=== PATIENT | female | born 1960 | race Caucasian/White ===

== ENCOUNTER → 2021-04-25 12:16 | Outpatient (CLI) | payer OTHER, SELFPAY ==
--- NOTE | ~2021-04-25 | MM_ITS ---
EXAMINATION: MM screening lex BI w parviz HISTORY: Screening TECHNIQUE: Craniocaudal and mediolateral oblique 3-D tomosynthesis images were obtained and synthetic 2-D images were generated. CAD analysis was submitted and interpreted. COMPARISON: 04/02/2015 BREAST PARENCHYMAL COMPOSITION: Breast composed of scattered areas of fibroglandular density. FINDINGS: There is a new spiculated mass with regional pleomorphic calcifications centered in the upp er outer quadrant of the right breast. There is an enlarging lymph node in the outer aspect of the ri ght breast on CC view. The left breast is stable without evidence for malignancy. IMPRESSION: 1. New spiculated right breast mass with regional calcifications. 2. Additional mammographic views and possible breast ultrasound are recommended. BI-RADS Category 0: Incomplete: Needs additional imaging evaluation. Reviewed, dictated and finalized at location A. IMPRESSION: 1. New spiculated right breast mass with regional calcifications. 2. Additional mammographic views and possible breast ultrasound are recommended . BI-RADS Category 0: Incomplete: Needs additional imaging evaluation.
== END ==
PROVIDERS: PCP Family Medicine; Visit Provider Physician Assistant
DX: Z12.31 Encounter for screening mammogram for malignant neoplasm of breast (principal); R92.8 Other abnormal and inconclusive findings on diagnostic imaging of breast
CPT/HCPCS: 77063; 77067

== ENCOUNTER → 2021-05-22 08:38 | Outpatient (CLI) | payer OTHER, SELFPAY ==
--- NOTE | ~2021-05-22 | MMUS_ITS ---
EXAMINATION: MM diagnostic lex RT w parviz, US breast RT complete HISTORY: Follow-up right breast mass and calcifications TECHNIQUE: Additional 3-D tomosynthesis images of right were performed and synthetic 2-D images were generated. CAD analysis was submitted and interpreted. High resolution right complete breast ultrasou nd was performed. COMPARISON: 04/25/2021 and 04/15/2015 BREAST PARENCHYMAL COMPOSITION: Breast composed of scattered areas of fibroglandular density. FINDINGS: MAMMOGRAPHIC FINDINGS: There is an irregular shaped spiculated mass centered in the upper outer quadrant of the right breast measuring approximately 2.8 cm greatest dimension. There are associated surrounding suspicious calci fications in the upper outer quadrant extending across the midline into the medial aspect of the righ t breast. ULTRASOUND: Complete right breast ultrasound: At 10:00, 7 cm from the nipple, there is a lobulated hypoechoic 9 m m mass with internal vascularity. No significant posterior features. At 12:00, 3 cm from the nipple, there is an irregular shaped hypoechoic mass with posterior shadowing measuring 1.7 x 1.5 x 1.4 cm, c orresponding to the dominant mass seen on mammography. IMPRESSION: 1. Multiple suspicious right breast masses with additional suspicious calcifications involving the up per outer and upper inner quadrant of the right breast. 2. Ultrasound-guided right breast biopsies recommended. BI-RADS category 5, highly suggestive of malignancy. Reviewed, dictated and finalized at location A. IMPRESSION: 1. Multiple suspicious right breast masses with additional suspicious calcifica tions involving the upper outer and upper inner quadrant of the right breast. 2. Ultrasound-guided right breast biopsies recommended. BI-RADS category 5, highly suggestive of malignancy.
== END ==
PROVIDERS: PCP Family Medicine; Visit Provider Family Medicine
DX: R92.8 Other abnormal and inconclusive findings on diagnostic imaging of breast (principal); N63.15 Unspecified lump in the right breast, overlapping quadrants
CPT/HCPCS: 76641; 77061; 77065; G0279

== ENCOUNTER 2021-06-24 10:34 | Outpatient (CLI) | payer OTHER, SELFPAY ==
--- NOTE | 2021-06-24 | ECHO_ITS ---
Patient Info Name: Kate Dubois Age: 60 years : 1960 Gender: Female Ht: 64 in Wt: 134 lbs BSA: 1.66 m2 HR: 56 bpm BP: 144 / 83 mmHg Heart Rhythm: Bradycardia Technical Quality: Good Exam Date: 06/24/2021 11:01 AM Exam Location: [facility] Patient Status: Outpatient Admit Date: 06/24/2021 Staff Ordering Physician: Sean Pizarro MD Information Security Manager: ITALIA Attending Provider: Sean Pizarro MD Referring Physician: Juarez SENIOR; Exam Type: CA echo doppler color flow Study Info Indications C50.411 - Malignant neoplasm of upper-outer quadrant of right female breast Complete two-dimensional, color flow and Doppler transthoracic echocardiogram is performed. Summary 1. Complete two-dimensional, color flow and Doppler transthoracic echocardiogram is performed. 2. Normal LV size and wall thickness. Normal LV systolic and diastolic function. Ejection fraction is measured at 65%. Normal global longitudinal strain measured at -23%. No significant valvular abnormality on echo and Doppler. Sinus rhythm and sinus bradycardia during the study. Left Ventricle Left ventricular chamber dimension is normal. Left ventricular systolic function is normal, estimated at 60-65%. There is no increased left ventricular wall thickness. The left ventricular diastolic function is normal. Right Ventricle Right ventricular chamber dimension is normal. Right ventricular systolic function is normal. Aortic Valve The aortic valve is normal. There is no aortic valve stenosis. Pulmonic Valve The pulmonic valve is normal. Mitral Valve The mitral valve has normal leaflets. There is no mitral valve regurgitation. Tricuspid Valve The tricuspid valve leaflets are normal. There is trace tricuspid valve regurgitation. Left Ventricular Outflow Tract Name Value Normal LVOT 2D LVOT Diameter 2.1 cm LVOT Doppler LVOT Peak Gradient 4 mmHg LVOT Mean Gradient 2 mmHg LVOT VTI 27 cm LVOT VTI/AV VTI Ratio 1.2 LVOT Stroke Volume 90 ml LVOT CO 13.1 l/min LVOT CI 7.9 l/min/m2 Mitral Valve Name Value Normal MV Doppler MV Decel [place] 224 cm/s2 MV PHT 99 ms MV Area (PHT) 2.2 cm2 4.0-5.0 MV Diastolic Function MV E Peak Velocity 77 cm/s MV A Peak Velocity 74 cm/s MV E/A 1.0 MV Decel Time 342 ms MV Annular TDI
== END 2021-06-24 10:35 | disposition home or self-care (01) ==
PROVIDERS: PCP Family Medicine; Visit Provider Internal Medicine Hematology & Oncology
DX: C50.411 Malignant neoplasm of upper-outer quadrant of right female breast (principal); Z17.0 Estrogen receptor positive status [ER+]
CPT/HCPCS: 93306

== ENCOUNTER 2021-10-09 09:37 | Outpatient (CLI) | payer OTHER, SELFPAY ==
--- NOTE | 2021-10-09 | ECHO_ITS ---
Patient Info Name: Kate Dubois Age: 61 years : 1960 Gender: Female Ht: 64 in Wt: 130 lbs BSA: 1.64 m2 HR: 74 bpm BP: 126 / 78 mmHg Heart Rhythm: Sinus Rhythm Technical Quality: Good Exam Date: 10/09/2021 10:00 AM Exam Location: [facility] Pul[facility] Patient Status: Outpatient Admit Date: 10/09/2021 Staff Ordering Physician: Sean Pizarro MD Hvac Designer: Khloe Quan RDCS Attending Provider: Sean Pizarro MD Referring Physician: Juarez SENIOR; Exam Type: CA echo doppler color flow Study Info Indications C50.411 - Malignant neoplasm of upper-outer quadrant of right female breast Complete two-dimensional, color flow and Doppler transthoracic echocardiogram is performed. Strain analysis performed. Summary 1. Complete two-dimensional, color flow and Doppler transthoracic echocardiogram is performed. 2. Strain analysis performed. 3. Left ventricular chamber dimension is normal. 4. Left ventricular systolic function is normal, estimated at 55-60%. 5. There is no increased left ventricular wall thickness. 6. The left ventricular diastolic function is normal. 7. Global longitudinal strain is borderline at -16 %. 8. There is mild mitral valve regurgitation. Left Ventricle Left ventricular chamber dimension is normal. Left ventricular systolic function is normal, estimated at 55-60%. There is no increased left ventricular wall thickness. The left ventricular diastolic function is normal. Global longitudinal strain is borderline at -16 %. Right Ventricle Right ventricular chamber dimension is mildly enlarged. Right ventricular systolic function is normal. Left Atria Left atrial chamber dimension is normal. Right Atria Right atrial chamber dimension is mildly enlarged. Atrial Septum Intact interatrial septum visualized by color flow imaging. Aortic Valve The aortic valve is trileaflet. There is mild aortic valve sclerosis. There is no aortic valve stenosis. There is trace aortic valve regurgitation. Pulmonic Valve The pulmonic valve is normal. There is no pulmonic valve stenosis. There is trace pulmonic regurgitation. Mitral Valve The mitral valve has normal leaflets. There is no mitral valve stenosis. There is mild mitral valve regurgitation. Tricuspid Valve The tricuspid valve leaflets are normal. There is no significant tricuspid valve stenosis. There is trace tricuspid valve regurgitation. No pulmonary hypertension, estimated pulmonary arterial systolic pressure is 29 mmHg. Pericardium/Pleural The pericardium appears normal. There is no pericardial effusion. Inferior Vena Cava Normal inferior vena cava with >50% collapse upon inspiration consistent with normal right atrial pressure, 10 mmHg. Aorta The aortic root size at the sinus of Valsalva is normal. Left Ventricular Outflow Tract Name Value Normal LVOT 2D LVOT Diameter 2.0 cm LVOT Doppler LVOT Peak Gradient 3 mmHg LVOT Mean Gradient 2 mmHg LVOT VTI 15 cm LVOT VTI/AV VTI Ratio
== END 2021-10-09 09:38 | disposition home or self-care (01) ==
PROVIDERS: PCP Family Medicine; Visit Provider Internal Medicine Hematology & Oncology
DX: C50.411 Malignant neoplasm of upper-outer quadrant of right female breast (principal); Z17.0 Estrogen receptor positive status [ER+]
CPT/HCPCS: 93306

== ENCOUNTER 2022-02-04 09:38 | Outpatient (CLI) | payer OTHER, SELFPAY ==
--- NOTE | 2022-02-04 | ECHO_ITS ---
Patient Info Name: Kate Dubois Age: 61 years : 1960 Gender: Female Ht: 64 in Wt: 134 lbs BSA: 1.66 m2 HR: 64 bpm BP: 129 / 77 mmHg Heart Rhythm: Sinus Rhythm Technical Quality: Good Exam Date: 02/04/2022 9:58 AM Exam Location: [facility] Pulmonary Patient Status: Outpatient Admit Date: 02/04/2022 Staff Ordering Physician: Sean Pizarro MD Fusing Machine Feeder: Lorenza Slaughter RDCS Attending Provider: Sean Pizarro MD Referring Physician: Juarez SENIOR; Exam Type: CA echo doppler color flow Study Info Indications - Malignant neoplasm of upper outer, quadrant of right breast, estrogen receptor positive Summary 1. Left ventricular chamber dimension is normal. 2. Left ventricular systolic function is normal, estimated at 60-65%. 3. The left ventricular diastolic function is normal. 4. E/e' 5 is not elevated. 5. Global longitudinal strain is normal at -19.3%. 6. There is trace tricuspid valve regurgitation. 7. No pulmonary hypertension, estimated pulmonary arterial systolic pressure is 26 mmHg. Left Ventricle E/e' 5 is not elevated. Global longitudinal strain is normal at -19.3%. Left ventricular chamber dimension is normal. Left ventricular systolic function is normal, estimated at 60-65%. The left ventricular diastolic function is normal. Right Ventricle Right ventricular systolic function is normal and with normal TAPSE 2.1 cm. Right ventricular chamber dimension is normal. Left Atria Left atrial chamber dimension is normal. Right Atria Right atrial chamber dimension is normal. Aortic Valve The aortic valve is trileaflet. There is no aortic valve stenosis. There is no aortic valve regurgitation. Pulmonic Valve There is no pulmonic regurgitation. Mitral Valve There is no mitral valve stenosis. There is no mitral valve regurgitation. Tricuspid Valve There is trace tricuspid valve regurgitation. No pulmonary hypertension, estimated pulmonary arterial systolic pressure is 26 mmHg. Pericardium/Pleural There is no pericardial effusion. Inferior Vena Cava Normal inferior vena cava with >50% collapse upon inspiration consistent with normal right atrial pressure, 5 mmHg. Aorta The aortic root size at the sinus of Valsalva is normal. Left Ventricular Outflow Tract Name Value Normal LVOT 2D LVOT Diameter 2.0 cm LVOT Doppler LVOT Peak Gradient 4 mmHg LVOT Mean Gradient 2 mmHg LVOT VTI 20 cm LVOT VTI/AV VTI Ratio 0.8 LVOT Stroke Volume 60 ml LVOT CO 3.4 l/min LVOT CI 2.1 l/min/m2 Pulmonic Valve Name Value Normal RVOT Doppler RVOT Peak Gradient 2 mmHg PV Doppler
== END 2022-02-04 09:39 | disposition home or self-care (01) ==
LOC: ANHCARD 09:38
PROVIDERS: PCP Family Medicine; Visit Provider Internal Medicine Hematology & Oncology
DX: C50.411 Malignant neoplasm of upper-outer quadrant of right female breast (principal); Z17.0 Estrogen receptor positive status [ER+]
CPT/HCPCS: 93306

== ENCOUNTER 2022-05-19 07:27 | Outpatient (CLI) | payer OTHER, SELFPAY ==
--- NOTE | 2022-05-19 | ECHO_ITS ---
Patient Info Name: Kate Dubois Age: 61 years : 1960 Gender: Female Ht: 63 in Wt: 137 lbs BSA: 1.67 m2 HR: 58 bpm BP: 116 / 74 mmHg Heart Rhythm: Sinus Rhythm Technical Quality: Fair Exam Date: 05/19/2022 8:16 AM Exam Location: [facility] Pulmonary Patient Status: Outpatient Admit Date: 05/19/2022 Staff Ordering Physician: Sean Pizarro MD Foreign Trade Teacher: Lorenza Slaughter RDCS Attending Provider: Sean Pizarro MD Referring Physician: Juarez SENIOR; Exam Type: CA echo doppler color flow Study Info Indications - Malignant neoplasm of the upper-outer quardrant of right breast in female estrogen receptor positive (C50.411, Z17.0) Complete two-dimensional, color flow and Doppler transthoracic echocardiogram is performed. Summary 1. Complete two-dimensional, color flow and Doppler transthoracic echocardiogram is performed. 2. Left ventricular chamber dimension is normal. 3. Left ventricular systolic function is normal, estimated at 60-65%. 4. The left ventricular diastolic function is grade I diastolic dysfunction. 5. E/e' 9 is minimally elevated. 6. Global longitudinal strain is normal at -20.6%. 7. No pulmonary hypertension, estimated pulmonary arterial systolic pressure is 23 mmHg. Left Ventricle E/e' 9 is minimally elevated. Global longitudinal strain is normal at -20.6%. Left ventricular chamber dimension is normal. Left ventricular systolic function is normal, estimated at 60-65%. The left ventricular diastolic function is grade I diastolic dysfunction. Right Ventricle Right ventricular systolic function is normal and with normal TAPSE 2.7 cm. Right ventricular chamber dimension is normal. Left Atria Left atrial chamber dimension is normal. Right Atria Right atrial chamber dimension is normal. Aortic Valve The aortic valve is trileaflet. There is no aortic valve stenosis. There is no aortic valve regurgitation. Pulmonic Valve There is no pulmonic regurgitation. Mitral Valve There is no mitral valve stenosis. There is no mitral valve regurgitation. Tricuspid Valve There is no tricuspid valve regurgitation. No pulmonary hypertension, estimated pulmonary arterial systolic pressure is 23 mmHg. Pericardium/Pleural There is no pericardial effusion. Inferior Vena Cava Normal inferior vena cava with >50% collapse upon inspiration consistent with normal right atrial pressure, 5 mmHg. Aorta The aortic root size at the sinus of Valsalva is normal. Left Ventricular Outflow Tract Name Value Normal LVOT 2D LVOT Diameter 2.0 cm LVOT Doppler LVOT Peak Gradient 4 mmHg LVOT Mean Gradient 2 mmHg LVOT VTI 19 cm LVOT VTI/AV VTI Ratio 0.8 LVOT Stroke Volume 58 ml LVOT CO 3.4 l/min LVOT CI 2.0 l/min/m2 Pulmonic Valve Name Value Normal --------
== END 2022-05-19 07:28 | disposition home or self-care (01) ==
PROVIDERS: PCP Family Medicine; Visit Provider Internal Medicine Hematology & Oncology
DX: C50.411 Malignant neoplasm of upper-outer quadrant of right female breast (principal); Z17.0 Estrogen receptor positive status [ER+]
CPT/HCPCS: 93306

== ENCOUNTER 2022-07-06 13:04 | Emergency (ER) | payer OTHER, SELFPAY ==
--- NOTE | ~2022-07-06 | CT_ITS ---
EXAMINATION: CT abdomen pelvis w con INDICATION: Right lower quadrant pain TECHNIQUE: Computed tomographic images of the abdomen and pelvis were obtained after the administrati on of 100 cc of Omnipaque 350 intravenous contrast. The dose-length product (DLP) was 302.24 mGy-cm. Automated exposure control and iterative reconstruction technique were employed. COMPARISON: None available FINDINGS: Minimal dependent atelectasis is present in the lung bases. The heart size is normal. A rig ht breast implant is noted. 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 The liver , spleen, pancreas, gallbladder, and adrenal glands are normal. There is a 1.5 cm cyst of the right k idney. The left kidney is unremarkable. No pathologically enlarged abdominal or pelvic lymph nodes ar e identified. There is no free intraperitoneal gas or evidence of bowel obstruction. The appendix is normal. There is mild lumbar spondylosis. IMPRESSION: 1. No CT correlate for the patient's symptoms. 2. 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 Reviewed, dictated and finalized at location A.
[2022-07-06 13:27] VITALS: BP 140/83; PULSE 73; RESP 18; TEMP 36.2; O2SAT 100
[2022-07-06 13:46] LABS: Basophils Percent Auto 0.5 % (0.2-1.2); Eosinophils Absolute Auto 0.2 K/mm3 (0-0.3); Eosinophils Percent Auto 3.2 % (0-4.4); Hematocrit 39.7 % (37.0-47.0); Hemoglobin 12.6 g/dL (12.0-15.0); Immature Granulocyte Absolute 0.02 K/mm3 (0.00-0.031); Immature Granulocyte Percent A 0.3 % (0-0.5); Lymphocytes Absolute Auto 1.31 K/mm3 (0.9-3.2); Lymphocytes Percent Auto 21.7 % (18.3-44.2); Mean Corpuscular HGB Conc 31.7 g/dl (32-36); Mean Corpuscular Hemoglobin 27.2 pg (26-34); Mean Corpuscular Volume 85.7 fl (80-100); Mean Platelet Volume 8.7 fl (7.4-10.4); Monocytes Absolute Auto 0.4 K/mm3 (0.1-0.6); Monocytes Percent Auto 6.3 % (2.6-8.5); Neutrophils Absolute Auto 4.1 K/mm3 (1.3-6.7); Platelet Count Result 278 k/mm3 (150-375); Red Blood Count 4.63 M/mm3 (4.2-5.4); Red Cell Distribution Width 14.3 % (11.5-14.5)
[2022-07-06 13:55] LABS: Alanine Aminotransferase 34 U/L (6-35); Albumin Level 4.6 g/dL (3.5-5.1); Alkaline Phosphatase 51 U/L (38-126); Anion Gap 11 mmol/L (8-16); Aspartate Amino Transferase 38 U/L (14-36); Bilirubin,Total 0.3 mg/dL (0.2-1.3); Blood Urea Nitrogen 14 mg/dL (7-17); Calcium 10.1 mg/dL (8.4-10.2); Carbon Dioxide 28 mmol/L (22-30); Chloride 102 mmol/L (98-107); Estimated Glomerular Filt Rate > 60; Glucose 109 mg/dL (65-110); Lipase 142 U/L (23-300); Potassium 3.8 mmol/L (3.4-5.0); Sodium 141 mmol/L (137-145)
[2022-07-06 14:14] LABS: Add Urine Microscopic? YES; Appearance Urine Clear (Clear); Bacteria Urine Trace /hpf; Bilirubin Urine Negative (Negative); Blood Urine 1+ (Negative); Color Urine Straw (Yellow); Glucose Urine UA Negative (Negative); Ketones Urine Negative (Negative); Leukocyte Esterase Ur Negative LEU/UL (Negative); Mucus Urine Rare /lpf; Nitrate Urine Negative (Negative); Protein Urine Negative (Negative); RBC Urine 0-2 /hpf (0-2); Urobilinogen Urine Negative mg/dL (<2.0); WBC Urine 0-3 /hpf
[2022-07-06 14:16] LABS: Specific Grav Ur 1.002 (1.001-1.035)
--- NOTE | 2022-07-06 15:22 | ED.ABDPAIN ---
HPI - Abdominal Pain General Chief Complaint: Abdominal Pain Stated Complaint: abd pain Time Seen by Provider: 07/06/22 15:21 Source: patient Mode of arrival: ambulatory Limitations: no limitations History of Present Illness HPI narrative: Patient is a 61-year-old female with a history of breast cancer currently undergoing chemotherapy, presenting to the emergency department for evaluation of right lower quadrant abdominal pain. Patient reports pain in the right lower quadrant is aching in nature present over the last 3 weeks and worsening. Patient denies radiation of the pain to the back. She denies left lower quadrant pain. She denies fever, chills, nausea, vomiting, dysuria or hematuria. She denies constipation or diarrhea. Related Data Home Medications Medication Instructions Recorded Confirmed Adults Multivitamin 2 tab-cap PO DAILY 08/20/21 06/23/22 B12 1,000 mcg PO DAILY 08/20/21 06/23/22 Chewable Iron 65 mg PO DAILY 08/20/21 06/23/22 [place] 3 1,000 mg PO DAILY 08/20/21 06/23/22 calcium cit 250 mg-ergocalciferol 500 tablet PO DAILY 01/26/22 06/23/22 (vit D2) 2.5 mcg (100 unit) tablet anastrozole 1 mg tablet 1 mg PO DAILY 03/31/22 06/23/22 Allergies Allergy/AdvReac Type Severity Reaction Status Date / Time sulfamethizole Allergy Unknown Rash Verified 06/23/22 09:47 Review of Systems Review of Systems: CONSTITUTIONAL: Denies fever, chills, or sweats. EYES: Denies visual changes, redness, or discharge. ENT: Denies rhinorrhea, congestion, sore throat, or otalgia. CARDIOVASCULAR: Denies chest pain, palpitations, or edema. RESPIRATORY: Denies cough or dyspnea. GASTROINTESTINAL: Right lower quadrant abdominal pain, denies nausea, vomiting or diarrhea. GENITOURINARY: Denies dysuria or hematuria. SKIN: Denies rash or itching. MUSCULOSKELETAL: Denies back pain, joint pain, or myalgia. NEUROLOGIC: Denies headache, numbness, or weakness. [facility] Past Medical History Medical History Abnormal mammogram Breast CA Healthy adult Malignant neoplasm of upper-outer quadrant of right female breast Screening for colon cancer (~2019) cologuard negative Surgical History Surgical History Hx of tubal ligation S/P hernia surgery Family History Family History Father Family history of cardiovascular disease Acute myocardial infarction Mother Family history of malignant neoplasm Social History Social History Smoking status: Never smoker Second hand tobacco smoke exposure: No Alcohol intake: current Drinks per week: 4 Substance use: never Substance use type: does not use Spiritual care concerns: No Exam Narrative: GENERAL: Awake, alert, conversant HEAD: Normocephalic, atraumatic. EYES: PERRLA and EOMI. ENT: Nares clear, no rhinorrhea or epistaxis. Mucous membranes moist. NECK: Supple. CHEST: No respiratory distress, breathing even and non labored HEART: Regular rate, sinus rhythm ABDOMEN:Non distended, right lower quadrant tenderness with positive guarding, no rebound, rigidity, no flank tenderness bilaterally EXTREMITIES: Normal range of motion. No edema. SKIN: Warm, dry, no rash. NEURO:No focal deficits. Alert and oriented x3 Course Vital Signs Vital signs: Vital Signs Temperature 36.2 C L 07/06/22 13:27 Pulse Rate 73 07/06/22 13:27 Respiratory Rate 18 07/06/22 13:27 Blood Pressure 140/83 07/06/22 13:27 Pulse Oximetry 100 07/06/22 13:27 Oxygen Delivery Room Air 07/06/22 13:27 Temperature 36.2 C L 07/06/22 13:27 Pulse Rate 73 07/06/22 13:27 Respiratory Rate 18 07/06/22 13:27 Blood Pressure 140/83 07/06/22 13:27 Pulse Oximetry 100 07/06/22 13:27 Oxygen Delivery Room Air 07/06/22 13:27 MDM - Abdominal Pain MDM Narrative Medica
[2022-07-06] MEDS: SODIUM CHLORIDE 0.9% IV 1,000 ML 999 ML IV CONT (16:04)
[2022-07-06] MEDS: ONDANSETRON INJ 4 MG/2 ML VIAL IV PUSH (16:04)
[2022-07-06] MEDS: MORPHINE SULFATE (*CRX) 4 MG/ML INJ IV PUSH (16:04)
--- NOTE | 2022-07-06 17:49 | PC.NURSE ---
port de-accessed with 10 NS AND 5 ml of Heparin
[2022-07-06 17:52] VITALS: BP 139/76; PULSE 86; RESP 14; O2SAT 98
== END 2022-07-06 17:52 | disposition home or self-care (01) ==
PROVIDERS: Emergency Medicine; Emergency Provider Emergency Medicine; PCP Family Medicine
DX: R10.31 Right lower quadrant pain (principal); I72.8 Aneurysm of other specified arteries; C50.911 Malignant neoplasm of unspecified site of right female breast; Z79.899 Other long term (current) drug therapy
CPT/HCPCS: 36415; 74177; 80053; 81001; 83690; 85025; 96361; 96374; 96375; 99284; J1642; J2270; J2405; J7030; Q9967

== ENCOUNTER 2022-08-05 07:29 | Outpatient (CLI) | payer OTHER, SELFPAY ==
--- NOTE | 2022-08-05 | ECHO_ITS ---
Patient Info Name: Kate Dubois Age: 62 years : 1960 Gender: Female Ht: 64 in Wt: 140 lbs BSA: 1.70 m2 HR: 67 bpm BP: 103 / 70 mmHg Technical Quality: Good Exam Date: 08/05/2022 8:19 AM Exam Location: [facility] Patient Status: Outpatient Admit Date: 08/05/2022 Staff Ordering Physician: Sean Pizarro MD Lean Engineer: Luca Menon RDCS, RT Attending Provider: Sean Pizarro MD Referring Physician: Juarez SENIOR; Exam Type: CA echo doppler color flow Study Info Indications C44.52 - Malignant neoplasm of skin of breast Complete two-dimensional, color flow and Doppler transthoracic echocardiogram is performed. Strain analysis performed. Summary 1. Complete two-dimensional, color flow and Doppler transthoracic echocardiogram is performed. 2. Left ventricular chamber dimension is normal. 3. Left ventricular systolic function is normal, estimated at 60-65%. 4. The left ventricular diastolic function is normal. 5. E/e' 6 is not elevated. 6. Global longitudinal strain is normal at -18.4%. 7. No pulmonary hypertension, estimated pulmonary arterial systolic pressure is 24 mmHg. Left Ventricle E/e' 6 is not elevated. Global longitudinal strain is normal at -18.4%. Left ventricular chamber dimension is normal. Left ventricular systolic function is normal, estimated at 60-65%. The left ventricular diastolic function is normal. Right Ventricle Right ventricular systolic function is normal and with normal TAPSE 2.3 cm. Right ventricular chamber dimension is normal. Left Atria Left atrial chamber dimension is normal. Right Atria Right atrial chamber dimension is normal. Aortic Valve The aortic valve is trileaflet. There is no aortic valve stenosis. There is no aortic valve regurgitation. Pulmonic Valve There is no pulmonic regurgitation. Mitral Valve There is no mitral valve stenosis. There is no mitral valve regurgitation. Tricuspid Valve There is no tricuspid valve regurgitation. No pulmonary hypertension, estimated pulmonary arterial systolic pressure is 24 mmHg. Pericardium/Pleural There is no pericardial effusion. Inferior Vena Cava Normal inferior vena cava with >50% collapse upon inspiration consistent with normal right atrial pressure, 5 mmHg. Aorta The aortic root size at the sinus of Valsalva is normal. Left Ventricular Outflow Tract Name Value Normal LVOT 2D LVOT Diameter 2.0 cm LVOT Doppler LVOT Peak Gradient 2 mmHg LVOT Mean Gradient 1 mmHg LVOT VTI 17 cm LVOT VTI/AV VTI Ratio 0.8 LVOT Stroke Volume 50 ml LVOT CO 3.4 l/min LVOT CI 2.0 l/min/m2 Mitral Valve Name Value Normal MV Doppler
== END 2022-08-05 07:30 | disposition home or self-care (01) ==
LOC: ANHCARD 07:31
PROVIDERS: PCP Family Medicine; Visit Provider Internal Medicine Hematology & Oncology
DX: C50.411 Malignant neoplasm of upper-outer quadrant of right female breast (principal); Z17.0 Estrogen receptor positive status [ER+]
CPT/HCPCS: 93306

== ENCOUNTER 2023-03-29 08:32 | Outpatient (CLI) | payer OTHER, SELFPAY ==
--- NOTE | ~2023-03-29 | DEXA_ITS ---
Bone Density Report Name: KATLIN BACA Age: 62 Sex: Female Ethnicity: White Date of : 1960 Indication: postmenopausal; screening for osteoporosis; height loss; cancer; Referring Provider: RIANA MEANS Study: Bone densitometry was performed. Exam Date: March 29, 2023 Accession number: [id number] Bone Density: Region BMD T-score Z-score Classification AP Spine(L1-L4) 1.069 0.2 1.9 Normal Femoral Neck (Left) 0.850 0.0 1.5 Normal Total Hip (Left) 0.960 0.2 1.3 Normal Femoral Neck (Right) 0.788 -0.5 0.9 Normal Total Hip (Right) 0.963 0.2 1.3 Normal Total Hip Mean 0.962 0.2 1.3 Normal World Health Organization criteria for BMD impression classify patients as: Normal (T-score at or above -1.0), Osteopenia (T-score between -1.0 and -2.5), or Osteoporosis (T-score at or below -2.5). 10-year Fracture Risk: FRAX not reported because: All T-scores for Spine Total, Hip Total, Femoral Neck at or above -1.0 Clinical Information Provided by Patient: Has used the following medications: Vitamin D, Calcium Has the following medical conditions: Cancer Patient maximum height was 64 Menopause Age: 44 Drinks caffeinated beverages Onset of menses at age 13 Number of children 2 Impression: The patient has normal bone mass. Discussion: BONE DENSITY IS ABOVE THE MINIMUM DESIRABLE LEVEL AT ALL SKELETAL SITES TESTED. This patient?s bone mineral density is above the minimum desirable level (T-score -1.0 or better) at all sites measured. The patient should follow a healthful lifestyle (good nutrition with adequate calcium and vitamin D, and appropriate weight-bearing exercise). Follow-Up: Consider repeating this study in 5 years or sooner if there is some new clinical indication. Reported by: MARYCRUZ on 03/29/2023 8:52:00 AM. Reviewed, dictated and finalized at location ADenise KELLEY
== END 2023-03-29 08:33 | disposition home or self-care (01) ==
LOC: ANHIMG 08:34
PROVIDERS: PCP Family Medicine; Visit Provider Internal Medicine Hematology & Oncology
DX: M85.89 Other specified disorders of bone density and structure, multiple sites (principal); Z78.0 Asymptomatic menopausal state
CPT/HCPCS: 36415; 77080; 80053; 80061; 85025; 86300

== ENCOUNTER 2023-03-29 08:56 | Outpatient (CLI) | payer OTHER, SELFPAY ==
[2023-03-29 13:14] LABS: Cholesterol 271 mg/dL (0-200); HDL Direct 66 mg/dL; Triglycerides 161 mg/dL (<150)
[2023-03-29 13:25] LABS: LDL Cholesterol Direct 139 mg/dL
== END 2023-03-29 08:57 | disposition home or self-care (01) ==
PROVIDERS: PCP Family Medicine; Visit Provider Physician Assistant
DX: Z13.220 Encounter for screening for lipoid disorders (principal)
CPT/HCPCS: 36415; 80061

== ENCOUNTER 2023-12-01 08:28 | Outpatient (CLI) | payer OTHER, SELFPAY ==
[2023-12-01 09:03] LABS: Basophils Percent Auto 0.9 % (0.2-1.2); Eosinophils Absolute Auto 0.1 K/mm3 (0-0.3); Eosinophils Percent Auto 3.1 % (0-4.4); Hematocrit 40.8 % (37.0-47.0); Hemoglobin 13.1 g/dL (12.0-15.0); Immature Granulocyte Absolute 0.03 K/mm3 (0.00-0.031); Immature Granulocyte Percent A 0.7 % (0-0.5); Lymphocytes Absolute Auto 1.09 K/mm3 (0.9-3.2); Lymphocytes Percent Auto 24.3 % (18.3-44.2); Mean Corpuscular HGB Conc 32.1 g/dl (32-36); Mean Corpuscular Hemoglobin 28.1 pg (26-34); Mean Corpuscular Volume 87.6 fl (80-100); Mean Platelet Volume 8.9 fl (7.4-10.4); Monocytes Absolute Auto 0.3 K/mm3 (0.1-0.6); Monocytes Percent Auto 7.4 % (2.6-8.5); Neutrophils Absolute Auto 2.9 K/mm3 (1.3-6.7); Neutrophils Percent Auto 63.6 % (45.5-73.1); Platelet Count Result 274 k/mm3 (150-375); Red Blood Count 4.66 M/mm3 (4.2-5.4); Red Cell Distribution Width 13.2 % (11.5-14.5); White Blood Count 4.5 K/mm3 (4.5-10.0)
[2023-12-01 11:28] LABS: Alanine Aminotransferase 28 U/L (6-35); Albumin Level 4.2 g/dL (3.5-5.1); Alkaline Phosphatase 57 U/L (38-126); Anion Gap 2 mmol/L (8-16); Aspartate Amino Transferase 30 U/L (14-36); Bilirubin,Total 0.6 mg/dL (0.2-1.3); Blood Urea Nitrogen 15 mg/dL (7-17); Calcium 9.7 mg/dL (8.4-10.2); Carbon Dioxide 29 mmol/L (22-30); Chloride 106 mmol/L (98-107); Cholesterol 257 mg/dL (0-200); Estimated Glomerular Filt Rate > 60; Glucose 107 mg/dL (65-110); HDL Direct 82 mg/dL; Potassium 4.2 mmol/L (3.4-5.0); Sodium 137 mmol/L (137-145); Triglycerides 71 mg/dL (<150)
[2023-12-01 11:39] LABS: LDL Cholesterol Direct 150 mg/dL
[2023-12-04 06:06] LABS: CA 15-3 <5 U/mL (<32)
== END 2023-12-01 08:29 | disposition home or self-care (01) ==
PROVIDERS: Physician Assistant; PCP Family Medicine; Visit Provider Internal Medicine Hematology & Oncology
DX: C50.411 Malignant neoplasm of upper-outer quadrant of right female breast (principal); Z17.0 Estrogen receptor positive status [ER+]; Z13.220 Encounter for screening for lipoid disorders
CPT/HCPCS: 36415; 80053; 80061; 85025; 86300

== ENCOUNTER 2024-01-05 07:00 | Outpatient (NON) | payer OTHER, SELFPAY | END 2024-01-05 07:01 | disposition home or self-care (01) | PROVIDERS: PCP Family Medicine; Visit Provider Internal Medicine Gastroenterology | DX: R19.5 Other fecal abnormalities (principal) | CPT/HCPCS: 88305 ==

== ENCOUNTER 2024-01-05 07:39 | Day surgery (SDC) | payer OTHER, SELFPAY ==
[2023-12-13 09:47] VITALS: BMI 24.3
[2023-12-20 11:01] VITALS: BMI 25.7
[2024-01-05 08:22] VITALS: BMI 25.3
[2024-01-05 08:25] VITALS: BP 118/75; PULSE 78; RESP 16; TEMP 36.9; O2SAT 100
--- NOTE | 2024-01-05 08:37 | P.PNAN_ITS ---
Anes - Initial Pre Proc Eval Procedure: Operation Date: 01/05/24 09:30 Proposed Procedures p Diagnostic Colonoscopy - Rudy García MD Date/Time: 01/05/24 08:37 Surgeon: Rudy García MD Pre Op Diagnosis: Other Fecal Abnormalities Patient Data Age: 63 Gender: F Height: 1.6 m Weight: 64.9 kg Last Vital Signs Temp 36.9 C 01/05/24 08:25 Pulse 78 01/05/24 08:25 Resp 16 01/05/24 08:25 BP 118/75 01/05/24 08:25 Pulse Ox 100 01/05/24 08:25 O2 Del Method Room Air 01/05/24 08:25 Allergies Allergy/AdvReac Type Severity Reaction Status Date / Time sulfamethizole Allergy Unknown Rash Verified 01/05/24 08:16 Home Medications Medication Instructions Recorded Confirmed Type Adults Multivitamin 2 tab-cap PO DAILY 08/20/21 01/05/24 History calcium cit 250 mg-ergocalciferol 500 tablet PO DAILY 01/26/22 01/05/24 History (vit D2) 2.5 mcg (100 unit) tablet anastrozole 1 mg tablet 1 mg PO DAILY 03/31/22 01/05/24 History psyllium husk 0.52 gram capsule 0.52 g PO DAILY 12/20/23 01/05/24 History vitamin D3-red 1 cap PO DAILY 12/20/23 01/05/24 History zaky-lvzuhwrxrra-ookwgvcmfhmi 5,000 unit-200 mg capsule (Super-D3+) Patient hx anesthesia problems: none Family hx anesthesia problems: none Results Review: All pre-operative results and documents have been reviewed as part of the pre- operative evaluation. [facility] Past Medical History Medical History Abnormal mammogram Breast CA Healthy adult Malignant neoplasm of upper-outer quadrant of right female breast Screening for colon cancer (~2019) cologuard negative Surgical History Surgical History Hx of tubal ligation S/P hernia surgery Family History Family History Father Family history of cardiovascular disease Acute myocardial infarction Mother Family history of malignant neoplasm Social History Social History Smoking status: Never smoker Second hand tobacco smoke exposure: No Alcohol intake: current Drinks per week: 4 Alcohol use details: occasional Substance use: never Substance use type: does not use Living arrangements: with family Spiritual care concerns: No Anes - Eval Final PreProcedure Day of Procedure 01/05/24 08:37 Patient weight: normal Heart: regular rate and rhythm Lungs: clear to auscultation Airway: Mallampati scale class II Neurological: alert and oriented Last oral intake: >/= 8 hours ASA classification: III Emergent: no Anesthetic plan: proceed Anesthesia type and monitoring: general GIVS and standard monitoring Results Review: All pre-operative results and documents have been reviewed as part of the pre- operative evaluation. Informed Consent: The patient's anesthetic plan and its attendant risks and benefits were discussed with the patient/family/POA. Questions were solicited and answers provided to the satisfaction of the patient/family/POA.
[2024-01-05] MEDS: LACTATED RINGERS 1,000 ML 150 ML IV CONT (08:42)
--- NOTE | 2024-01-05 09:02 | P.HP_ITS ---
History of Present Illness History of Present Illness Consent: Risks, benefits, and alternatives have been discussed and questions answered. Patient agrees to proceed with procedure. Chief complaint: Positive Cologuard Narrative: Kate Dubois is a 63 year old female presents for screening colonoscopy. Patient's current weight appetite and bowel movements are normal. She denies abdominal pain. Patient has had no bleeding. Noncontributory. Recent Cologua rd test was found to be positive. Review of Systems Review of Systems: All systems reviewed & are unremarkable except as noted in HPI and below PMFSH Past Medical History Medical History Abnormal mammogram Breast CA Healthy adult Malignant neoplasm of upper-outer quadrant of right female breast Screening for colon cancer (~2019) cologuard negative Surgical History Surgical History Hx of tubal ligation S/P hernia surgery Family History Family History Father Family history of cardiovascular disease Acute myocardial infarction Mother Family history of malignant neoplasm Social History Social History Smoking status: Never smoker Second hand tobacco smoke exposure: No Alcohol intake: current Drinks per week: 4 Alcohol use details: occasional Substance use: never Substance use type: does not use Living arrangements: with family Spiritual care concerns: No Meds Home Medications and Allergies Home Medications Medication Instructions Recorded Confirmed Type Adults Multivitamin 2 tab-cap PO DAILY 08/20/21 01/05/24 History calcium cit 250 mg-ergocalciferol 500 tablet PO DAILY 01/26/22 01/05/24 History (vit D2) 2.5 mcg (100 unit) tablet anastrozole 1 mg tablet 1 mg PO DAILY 03/31/22 01/05/24 History psyllium husk 0.52 gram capsule 0.52 g PO DAILY 12/20/23 01/05/24 History vitamin D3-red 1 cap PO DAILY 12/20/23 01/05/24 History akbx-nurjaryysnb-ilixvnaifxfh 5,000 unit-200 mg capsule (Super-D3+) Allergies Allergy/AdvReac Type Severity Reaction Status Date / Time sulfamethizole Allergy Unknown Rash Verified 01/05/24 08:16 Vital Signs Vital Signs - 24 hr 01/05/24 08:25 Temperature 98.5 F Pulse Rate 78 Respiratory Rate 16 Blood Pressure 118/75 Pulse Oximetry 100 Oxygen Delivery Room Air Exam Narrative: Physical exam reveals patient to be alert. Vital signs stable. HEENT exam is unremarkable. Patient is anicteric. Lungs are clear to auscultation and percussion. Is without murmur or extra sounds. Abdomen sounds are present soft nontender with no hepatosplenomegaly. Digital external rectal exam normal. Assessment and Plan Assessment and plan (1) Positive colorectal cancer screening using Cologuard test: Code(s): R19.5 - Other fecal abnormalities Status: Acute Assessment and Plan: Patient presents today for screening colonoscopy. Patient's Cologuard test was positive. Further recommendations may be given after endoscopy.
[2024-01-05 10:06] VITALS: BP 95/47; PULSE 68; RESP 18; O2SAT 97
--- NOTE | 2024-01-05 10:15 | WPDANESPN ---
Anes - Prog Note Post-Op Date/Time: 01/05/24 10:15 Cardiovascular status: normal Respiratory status: normal Airway patency: baseline Mental status: baseline Post-Op hydration status: normal Vital Signs: Last Vital Signs Temp 36.9 C 01/05/24 08:25 Pulse 78 01/05/24 08:25 Resp 16 01/05/24 08:25 BP 118/75 01/05/24 08:25 Pulse Ox 100 01/05/24 08:25 O2 Del Method Room Air 01/05/24 08:25 Pain Score (VAS): 0 I/O: Intake & Output 01/04/24 01/05/24 01/05/24 23:59 07:59 15:59 Intake Total 500 Balance 500 Patient Feedback: Patient satisfied with anesthetic care.
[2024-01-05 10:16] VITALS: BP 100/61; PULSE 69; RESP 18; O2SAT 100
[2024-01-05 10:26] VITALS: BP 107/63; PULSE 62; RESP 16; O2SAT 100
== END 2024-01-05 10:36 | disposition home or self-care (01) ==
PROVIDERS: PCP Family Medicine; Visit Provider Internal Medicine Gastroenterology
PROC: 0DJD8ZZ Inspection of Lower Intestinal Tract, Via Natural or Artificial Opening Endoscopic (ICD-10-PCS; CPT 45378; principal; 2024-01-05 09:30)
DX: R19.5 Other fecal abnormalities (principal); D12.2 Benign neoplasm of ascending colon; K57.30 Diverticulosis of large intestine without perforation or abscess without bleeding; K64.8 Other hemorrhoids
CPT/HCPCS: 45385

== ENCOUNTER 2024-06-02 08:30 | Outpatient (CLI) | payer OTHER, SELFPAY ==
[2024-06-02 08:43] LABS: Basophils Absolute Auto 0.1 K/mm3 (0.0-0.1); Basophils Percent Auto 0.9 % (0.2-1.2); Eosinophils Absolute Auto 0.2 K/mm3 (0-0.3); Eosinophils Percent Auto 2.7 % (0-4.4); Hematocrit 41.7 % (37.0-47.0); Hemoglobin 13.2 g/dL (12.0-15.0); Immature Granulocyte Absolute 0.03 K/mm3 (0.00-0.031); Immature Granulocyte Percent A 0.5 % (0-0.5); Lymphocytes Absolute Auto 1.26 K/mm3 (0.9-3.2); Lymphocytes Percent Auto 22.5 % (18.3-44.2); Mean Corpuscular HGB Conc 31.7 g/dl (32-36); Mean Corpuscular Hemoglobin 27.4 pg (26-34); Mean Corpuscular Volume 86.5 fl (80-100); Monocytes Absolute Auto 0.5 K/mm3 (0.1-0.6); Monocytes Percent Auto 8.4 % (2.6-8.5); Neutrophils Absolute Auto 3.6 K/mm3 (1.3-6.7); Platelet Count Result 279 k/mm3 (150-375); Red Blood Count 4.82 M/mm3 (4.2-5.4); Red Cell Distribution Width 13.2 % (11.5-14.5); White Blood Count 5.6 K/mm3 (4.5-10.0)
[2024-06-02 11:36] LABS: Alanine Aminotransferase 22 U/L (6-35); Albumin Level 4.4 g/dL (3.5-5.1); Alkaline Phosphatase 49 U/L (38-126); Anion Gap 8 mmol/L (4-12); Aspartate Amino Transferase 28 U/L (14-36); Bilirubin,Total 0.5 mg/dL (0.2-1.3); Blood Urea Nitrogen 16 mg/dL (7-17); Calcium 9.7 mg/dL (8.4-10.2); Carbon Dioxide 31 mmol/L (22-30); Chloride 99 mmol/L (98-107); Estimated Glomerular Filt Rate > 60; Glucose 105 mg/dL (65-110); Potassium 4.2 mmol/L (3.4-5.0); Sodium 138 mmol/L (137-145)
[2024-06-06 09:38] LABS: CA 15-3 <5 U/mL (<32)
== END 2024-06-02 08:31 | disposition home or self-care (01) ==
LOC: ANHLAB 08:32
PROVIDERS: PCP Family Medicine; Visit Provider Internal Medicine Hematology & Oncology
DX: C50.411 Malignant neoplasm of upper-outer quadrant of right female breast (principal); Z17.0 Estrogen receptor positive status [ER+]
CPT/HCPCS: 36415; 80053; 85025; 86300

== ENCOUNTER 2024-12-05 08:35 | Outpatient (CLI) | payer MEDICARE, SELFPAY ==
--- OUTSIDE RECORDS SUMMARY | 2024-12-05 08:49 | XMS_ITS | Encounter Summary ---
Author Organization [facility] Address [address] [place] [address] Care Team Providers Care Cyber Intelligence Analyst Name Role Phone Jess Black MD Primary Care Provider [phone] Encounter Details Date Type Department Care Team (Late Contact Info) Description 10/16/2021 Chart Note [facility] Radiation Oncology [address] [place] [address] Valentín Raines MD [address] [address] Social History Tobacco Use Types Packs/Day Years Used Date Smoking Tobacco: Never Smokeless Tobacco: Never Alcohol Use Standard Drinks/Week Comments Yes 0 (1 standard drink = 0.6 oz pur e alcohol) occas Comments No Sex and Gender Information Value Date Recorded Sex Assigned at Not on file Legal Sex Female 9:59 AM CDT Gender Identity Not on file Sexual Orientation Not on file COVID-19 Exposure Response Date Recorded In the last month, have you been in contact with someone who was confirmed or suspected to have Coronavirus / COVID-19? Unable to assess 10/17/2021 9:37 AM SOFTWARE ENGINEER BACKEND documented as of this encounter Plan of Treatment Upcoming Encounters Date Type Department Care Team (Late Contact Info) Description 12/15/2024 8:45 AM CDT Office Visit [facility] Oncology and Hematology - [place] [address] [facility] [address] [place] [address] Sean Pizarro MD [address] [address] 04/17/2025 7:30 AM CDT Appointment [facility] [address] [place] [phone] [place] [address] [facility] [address] [place] [address] 04/17/2025 8:00 AM CDT Office Visit [facility] Breast Surgery [place] [address] [address] [facility] [address] [place] [address] [place] [address] [facility] [address] [place] [address] documented as of this encounter Visit Diagnoses Not on filedocumented in this encounter Care Teams Cyber Intelligence Analyst Relationship Specialty Start Date End Date Jess Black MD [address] [place] [id number] PCP - General Family Practice 05/29/21 documented as of this encounter
--- OUTSIDE RECORDS SUMMARY | 2024-12-05 08:49 | XMS_ITS | Clinical Summary ---
Author Organization [facility] Address [address] [place] [place] [address] Phone Care Team Providers Care Physics Teacher Name Role Phone Jess Black MD Primary Care Provider [phone] Allergies Active Allergy Reactions Criticality Noted Date Comments Sulfa (Sulfonamide Antibiotics) Rash Low 05/2021 Medications cyanocobalamin (VITAMIN B-12) 100 mcg tablet Take 100 mcg by mouth daily. Active multivitamin (DAILY-LIZETH) tablet Take 1 Tablet by mouth daily. Active anastrozole (ARIMIDEX) 1 mg tabletIndication s:Malignant neoplasm of upper-outer quadrant of right breast in female, estrogen receptor positive (CMS/HCC) Take 1 Tablet (1 mg) by mouth daily. 90 Tablet 3 02/11/2024 Active calcium phosphate trib/vit D3 (CITRACAL + D3, CALCIUM PHOS, ORAL) 07/28/2021 Active D3/red wine/resveratrol /malt (SUPER-D3+ ORAL) 09/28/2023 Active Active Problems Patient Care Coordination No te Formatting of this note migh t be different from the original. Primary Care: Jess Black MD Referring Provider: No referring provider defined for this encounter. Other: Dr. Paola Mohan MD Problem Noted Date Diagnosed Date Aromatase inhibitor use 04/13/2024 History of right breast cancer 04/01/2023 S/P right mastectomy 03/17/2022 Malignant neoplasm of upper- outer quadrant of right breast in female, estrogen receptor positive 06/10/2021 Cancer Staging:Clinical stage from 06/10/2021:Stage IIA(cT2, cN1(f), cM0, G2, ER+, CT-, HER2+) - Signed by Paola Mohan MD on 06/10/2021 Abnormality of right breast on screening mammogr am 05/29/2021 Mass overlapping multiple quadrants of right david ast 05/29/2021 Encounters Date Type Department Care Team Description 11/21/2024 External Device Data STL ABSTRACTION Provider, Abstract 11/08/2024 External Device Data STL ABSTRACTION Provider, Abstract 11/08/2024 External Device Data ST[facility] ABSTRACTION Provider, Abstract 10/20/2024 7:54 AM VP [employer] - 10/20/2024 11:59 PM VP [employer] Hospital Encounter [facility] Radiation Therapy [address] [place] [phone] Valentín Raines MD Discharge Disposition: Home or Self Care 10/17/2024 External Device Data STL ABSTRACTION Provider, Abstract 10/11/2024 External Device Data STL ABSTRACTION Provider, Abstract 10/03/2024 External Device Data STL ABSTRACTION Provider, Abstract from Last 3 Months Immunizations Immunization Administration Dates Next Due (StARTinitiative)(12 YR UP) COVID-19 VACCINE - EMERGENCY USE AUTHORIZATION, MRNA, [id number]) 30 MCG/0.3 ML IM SUSP 06/11/2021,12/10/2020,11/19/2020 Family History Medical History Relation Name Comments Heart Disease Father Breast Cancer Maternal Cousin 40's Cancer Mother Meggan Powers Multiple Myel nany Ovarian Cancer Neg Hx Relation Name Status Comments Father Maternal Cousin 40's Mother Meggan Powers Social History Tobacco Use Types Packs/Day Years Used Date Smoking Tobacco: Never Smokeless Tobacco: Never Tobacco Cessation:Counseling Given: Not Answered Alcohol Use Standard Drinks/Week Comments Not Currently 3 (1 standard drink = 0.6 oz pur e alcohol) Feeling Safe Answer Date Recorded Are you in a relationship wi th someone who hurts you emotionally and/or physically? No 10/20/2024 Comments No Sex and Gender Information Value Date Recorded Sex Assigned at Not on file Legal Sex Female 9:59 AM CDT Gender Identity Not on file Sexual Orientation Not on file Last Filed Vital Signs Vital Sign Reading Time Taken Comments Blood Pressure 127/65 10/20/2024 8:08 AM VP [employer] Pulse 62 10/20/2024 8:08 AM VP [employer] Temperature 36.3 C (97.3 F) 10/20/2024 8:08 AM VP [employer] Respiratory Rate 18 10/20/2024 8:08 AM VP [employer] Oxygen Saturation 98% 10/20/2024 8:08 AM VP [employer] Inhaled Oxygen Concentration - - Weight 66.7 kg (147 lb) 10/20/2024 8:08 AM VP [employer] Height 160 cm (5' 3 ) 10/20/2024 8:08 AM VP [employer] Body Mass Index 26.04 10/20/2024 8:08 AM VP [employer] Plan of Treatment Upcoming Encounters Date Type Department Care Team (Late st Contact Info) Description 12/15/2024 8:45 AM CDT Office Visit [facility] Oncology and Hematology [facility] [address] [facility] [address] [place] [address] Sean Pizarro MD [address] [facility] [address] [place] [address] 04/17/2025 7:30 AM CDT Appointment [facility] [address] [place] [address] [place] [address] [address] 04/17/2025 8:00 AM CDT Office [facility] Breast Surgery [address] [address] [facility] [address] [place] [address] [place] [address] [facility] [address] [place] [address] Health Maintenance Due Date Last Done Comments Pre-Diabetes and Diabetes Screening 1959 DTAP/TDAP/TD VACCINES (1 - Tdap) 1978 COLORECTAL SCREENING 2004 Colorectal Cancer Screening 2004 FIT-DNA Q 3 years 2004 FIT/FOBT Q 1 year 2004 Flex Sig/CT Colonography Q 5 years 2004 PNEUMOCOCCAL VACCINE 50+ YEA RS (1 of 1 - PCV) 2009 ZOSTER VACCINE (1 of 2) 2009 INFLUENZA VACCINE (#1) 2024 COVID-19 Vaccine (4 2023-2 5 season) 2024 06/11/2021, 12/10/2020, 11/19/2020 Preventative Visit- Commercial 09/20/2024 BREAST CANCER SCREENING 04/13/2025 04/13/20 24, 04/01/2023, 05/14/2022, Additional history exists RSV VACCINE (60+ or ) (1 - 1-dose 75+ series) 2034 OSTEOPOROSIS SCREENING Completed 03/29/2023 Medical Devices Implanted Type Area Hide Shaker Device Identifier Shelf Expiration Date Model / Serial / Lot Airplane Tester Clip Surgiclip Ii Robert 11.5in [id number] - [id number] Implanted:Qty : 1 on 11/21/2021 by Paola Mohan MD at [facility] Clip Right: Breast [employer] - [employer]EN [id number] 07/20/2026 [id number] / / [id number] Natrelle 133s Fv 300cc Tissue Deck Mate W/ Suture Tabs Implanted:Qty : 1 on 11/21/2021 by Mack Rick MD at [facility] Mammary Right: Breast [employer] [id number] 09/03/2024 133S-FV-1 1-T / [id number] / Description:Requisition # [id number]. Natrelle Inspira Soft Touch Ssf 295cc Implanted:Qty : 1 on 08/21/2022 by Mack Rick MD at [facility] Mammary Right: Breast [employer] [id number] 11/17/2026 SSF-295 / [id number] / Description:Requisition # [id number]. Alloderm Matrix Tissue Thick [id number] - [id number] Implanted:Qty : 1 on 11/21/2021 by Mack Rick MD at [facility] Tissue Right: Breast [employer] 02/17/2023 [id number] / / [id number] Lens-Eyes Bilateral: Eye Explanted Type Area Hide Shaker Device Identifier Shelf Expiration Date Model / Serial / Lot Port Powerport Clearvue 8fr Mri [id number] - [id number] Implanted:Qty: 1 on 06/18/2021 by Paola Mohan MD at [facility] Angeline Miller Explanted:Qty: 1 on 08/21/2022 by Mack Rick MD at [facility] Port Left: Chest CR BARD[employer] 03/19/2022 [id number] / / [id number] Procedures Procedure Name Priority Date/Time Associated Diagnosis Comments MAMMO DIAG UNI LEFT 3D CINDY W OR WO CAD Routine 04/13/2024 8:50 AM CDT S/P right mastectomy History of right breast cancer XR DEXA BONE DENSITY AXIAL 1 OR MORE SITES Routine 03/29/2023 10:45 AM CDT from Last 3 Months or Most Recently Relevant to Health Maintenance Results * MAMMO DIAG UNI LEFT 3D CINDY W OR WO CAD (04/13/2024 8:50 AM CDT) Anatomical Region Laterality Modality Breast Left Mammography 04/13/2024 8:51 AM CDT Impressions 04/13/2024 9:19 AM CDT IMPRESSION: No suspicious findings to suggest malignancy in the left breast. Annual mammography is recommended. OVERALL FINAL ASSESSMENT: BI-RADS 1 - Negative DICTATION LOCATION: Sofia Miller Narrative 04/13/2024 9:19 AM CDT LEFT BREAST FULL-FIELD DIGITAL DIAGNOSTIC MAMMOGRAM WITH CAD WITH 3D TOMOSYNTHESIS DATE: 04/13/2024 8:50 AM HISTORY: Right breast cancer treated with mastectomy. TECHNIQUE: Full-field digital craniocaudal, mediolateral and mediolateral oblique projections of the left breast were obtained. Low-dose full-field digital breast tomosynthesis examination was performed with 2D and 3D acquisitions. Examination is read in conjunction with computer aided detection. COMPARISON: 2022 and BREAST COMPOSITION: Scattered fibroglandular densities FINDINGS: No suspicious mass, suspicious microcalcifications, or architectural distortion is identified in the left breast. Computer aided detection was used in the interpretation of this examination. Procedure Note Mayito Kwon MD - 04/13/2024 LEFT BREAST FULL-FIELD DIGITAL DIAGNOSTIC MAMMOGRAM WITH CAD WITH 3D TOMOSYNTHESIS DATE: 04/13/2024 8:50 AM HISTORY: Right breast cancer treated with mastectomy. TECHNIQUE: Full-field digital craniocaudal, mediolateral and mediolateral oblique projections of the left breast were obtained. Low-dose full-field digital breast tomosynthesis examination was performed with 2D and 3D acquisitions. Examination is read in conjunction with computer aided detection. COMPARISON: 2022 and older BREAST COMPOSITION: Scattered fibroglandular densities FINDINGS: No suspicious mass, suspicious microcalcifications, or architectural distortion is identified in the left breast. Computer aided detection was used in the interpretation of this examination. IMPRESSION: No suspicious findings to suggest malignancy in the left breast. Annual mammography is recommended. OVERALL FINAL ASSESSMENT: BI-RADS 1 - Negative DICTATION LOCATION: Sofia Miller Paola Mohan MD MAMMO ORDERABLES Final R esult * XR DEXA BONE DENSITY AXIAL 1 OR MORE SITES (03/29/2023 10:45 AM CDT) Anatomical Region Laterality Modality Other Historical Provider DIAGNOSTIC IMAGING ORDERABLE S Final Result from Last 3 Months or Most Recently Relevant to Health Maintenance Insurance [employer] Advance Directives For more information, please contact: [phone] * Full Code (Latest Code Status on File) Date Activated Date Inactivated Comments 11/21/2021 5:14 PM 11/22/2021 11:20 AM Care Teams Physics Teacher Relationship Specialty Start Date End Date Jess Black MD [address] [place] [address] PCP - General Family Practice 05/29/21
--- OUTSIDE RECORDS SUMMARY | 2024-12-05 08:49 | XMS_ITS | Clinical Summary ---
Author Organization [facility] Address [facility] [place] [address] Care Team Providers Care Spooling Operator Name Role Phone Jess Black MD Primary Care Provider [phone] Allergies Active Allergy Reactions Criticality Noted Date Comments Sulfamethoxazole-Trimethoprim Rash Low 2018 Medications predniSONE 20 MG tablet Take 2 tablets a day by mouth for 5 days then take 1 tab a day by mouth for 5 days 15 tablet 04/02/2019 Active cetirizine 10 MG tablet Take 1 tablet (10 mg total) by mouth daily. 15 tablet 04/02/2019 Active Social History Tobacco Use Types Packs/Day Years Used Date Smoking Tobacco: Never Smokeless Tobacco: Never Alcohol Use Standard Drinks/Week Comments Yes 0 (1 standard drink = 0.6 oz pur e alcohol) occasional Comments Unknown Sex and Gender Information Value Date Recorded Sex Assigned at Not on file Legal Sex Female 1:58 PM CDT Gender Identity Not on file Sexual Orientation Not on file Last Filed Vital Signs Vital Sign Reading Time Taken Comments Blood Pressure 100/59 04/02/2019 3:22 PM CDT Pulse 70 04/02/2019 3:22 PM CDT Temperature 36.8 C (98.2 F) 04/02/2019 2:09 PM CDT Respiratory Rate 16 04/02/2019 3:22 PM CDT Oxygen Saturation 98% 04/02/2019 3:22 PM CDT Inhaled Oxygen Concentration - - Weight 66.7 kg (147 lb 0.8 oz) 04/02/2019 2:09 P M CDT Height 162.6 cm (5' 4 ) 04/02/2019 2:09 PM CDT Body Mass Index 25.24 04/02/2019 2:09 PM CDT Plan of Treatment Health Maintenance Due Date Last Done Comments Colorectal Cancer Screening Colonoscopy (10 Years) 1959 Hepatitis C 1977 DTaP, Tdap and Td Vaccines ( 1 - Tdap) 1978 Mammogram Screening 1999 Zoster Vaccines (1 of 2) 2009 COVID-19 Vaccine ( - 2023-2 5 season) 2024 Influenza Adult (#1) 2024 Dexa Scan (General) 2024 Pneumococcal Vaccine: 65+ Ye ars (1 of 1 - PCV) 2024 RSV Immunization or 60+ Years (1 - 1-dose 75+ series) 2034 Meningococcal B Vaccine Aged Out No l onger eligible based on patient's age to complete this topic Meningococcal Vaccine Aged Out No yasmin virgil eligible based on patient's age to complete this topic Pneumococcal Vaccine: Pediat rics (0 to 5 Years) and At-Risk Patients (6 to 64 Years) Aged Out No longer eligible b ased on patient's age to complete this topic RSV Immunizations Under 20 Months Aged Out No longer eligible based on patient's age to complete this topic Insurance Care Teams Spooling Operator Relationship Specialty Start Date End Date Jess Black MD PCP - General FAMILY PRACTICE 04/02/19
[2024-12-05 09:02] LABS: Basophils Absolute Auto 0.1 K/mm3 (0.0-0.1); Eosinophils Absolute Auto 0.2 K/mm3 (0-0.3); Eosinophils Percent Auto 2.9 % (0-4.4); Hematocrit 40.8 % (37.0-47.0); Hemoglobin 13.1 g/dL (12.0-15.0); Immature Granulocyte Absolute 0.03 K/mm3 (0.00-0.031); Immature Granulocyte Percent A 0.6 % (0-0.5); Lymphocytes Absolute Auto 1.25 K/mm3 (0.9-3.2); Lymphocytes Percent Auto 23.9 % (18.3-44.2); Mean Corpuscular HGB Conc 32.1 g/dl (32-36); Mean Corpuscular Hemoglobin 27.6 pg (26-34); Mean Corpuscular Volume 86.1 fl (80-100); Mean Platelet Volume 9.2 fl (7.4-10.4); Monocytes Absolute Auto 0.4 K/mm3 (0.1-0.6); Monocytes Percent Auto 8.4 % (2.6-8.5); Neutrophils Absolute Auto 3.3 K/mm3 (1.3-6.7); Neutrophils Percent Auto 63.2 % (45.5-73.1); Platelet Count Result 293 k/mm3 (150-375); Red Blood Count 4.74 M/mm3 (4.2-5.4); Red Cell Distribution Width 13.2 % (11.5-14.5); White Blood Count 5.2 K/mm3 (4.5-10.0)
[2024-12-05 12:29] LABS: Cholesterol 227 mg/dL (0-200); HDL Direct 80 mg/dL; Triglycerides 94 mg/dL (<150)
[2024-12-05 12:31] LABS: Alanine Aminotransferase 24 U/L (6-35); Albumin Level 4.3 g/dL (3.5-5.1); Alkaline Phosphatase 52 U/L (38-126); Anion Gap 7 mmol/L (4-12); Aspartate Amino Transferase 29 U/L (14-36); Bilirubin,Total 0.5 mg/dL (0.2-1.3); Blood Urea Nitrogen 13 mg/dL (7-17); Calcium 9.7 mg/dL (8.4-10.2); Carbon Dioxide 27 mmol/L (22-30); Chloride 104 mmol/L (98-107); Estimated Glomerular Filt Rate > 60; Glucose 101 mg/dL (65-110); Potassium 4.6 mmol/L (3.4-5.0); Sodium 138 mmol/L (137-145)
[2024-12-05 12:40] LABS: LDL Cholesterol Direct 105 mg/dL
== END 2024-12-05 08:36 | disposition home or self-care (01) ==
PROVIDERS: PCP Family Medicine; Referring Provider Family Medicine; Visit Provider Internal Medicine Hematology & Oncology
DX: E78.2 Mixed hyperlipidemia (principal); C50.411 Malignant neoplasm of upper-outer quadrant of right female breast; Z17.0 Estrogen receptor positive status [ER+]
CPT/HCPCS: 36415; 80053; 80061; 85025

== ENCOUNTER 2024-12-07 08:22 | Outpatient (CLI) | payer MEDICARE, SELFPAY ==
--- OUTSIDE RECORDS SUMMARY | 2024-12-07 08:27 | XMS_ITS | Clinical Summary ---
[facility] Organization [facility] Address [address] [place] [address] Phone Care Team Providers Care Lcac Operator Name Role Phone Jess Black MD Primary Care Provider [phone] Allergies Active Allergy Reactions Criticality Noted Date [...] from 06/10/2021:Stage IIA(cT2, cN1(f), cM0, G2, ER+, [place]-, HER2+) - Signed by Paola Mohan MD on 06/10/2021 Abnormality of right breast on screening mammogr am 05/29/2021 Mass overlapping multiple quadrants of right david ast 05/29/2021 Encounters Date Type Department Care Team Description 11/21/2024 External Device Data STL ABSTRACTION Provider, Abstract 11/08/2024 External Device Data STL ABSTRACTION Provider, Abstract 11/08/2024 External Device Data STL ABSTRACTION Provider, Abstract 10/20/2024 7:54 AM SUPERVISOR SHIPPING - 10/20/2024 11:59 PM SUPERVISOR SHIPPING Hospital Encounter [facility] Radiation Therapy [address] [place] [phone] Valentín Raines MD Discharge Disposition: Home or Self Care 10/17/2024 External Device Data STL ABSTRACTION Provider, Abstract 10/11/2024 External Device Data STL ABSTRACTION Provider, Abstract 10/03/2024 External Device Data STL ABSTRACTION Provider, Abstract from Last 3 Months Immunizations Immunization Administration Dates Next Due ([employer])(12 YR UP) COVID-19 VACCINE - EMERGENCY USE AUTHORIZATION, MRNA, [id number]) 30 MCG/0.3 ML IM SUSP 06/11/2021,12/10/2020,11/19/2020 Family [...] Comments Blood Pressure 127/65 10/20/2024 8:08 AM SUPERVISOR SHIPPING Pulse 62 10/20/2024 8:08 AM SUPERVISOR SHIPPING Temperature 36.3 C (97.3 F) 10/20/2024 8:08 AM SUPERVISOR SHIPPING Respiratory Rate 18 10/20/2024 8:08 AM SUPERVISOR SHIPPING Oxygen Saturation 98% 10/20/2024 8:08 AM SUPERVISOR SHIPPING Inhaled Oxygen Concentration - - Weight 66.7 kg (147 lb) 10/20/2024 8:08 AM SUPERVISOR SHIPPING Height 160 cm (5' 3 ) 10/20/2024 8:08 AM SUPERVISOR SHIPPING Body Mass Index 26.04 10/20/2024 8:08 AM SUPERVISOR SHIPPING Plan of Treatment Upcoming Encounters Date Type Department Care Team (Late st Contact Info) Description 12/15/2024 8:45 AM CDT Office Visit [facility] Oncology and Hematology [facility] [address] [facility] [address] [place] [address] Sean Pizarro MD [address] [facility] [address] [place] [address] 04/17/2025 7:30 AM CDT Appointment [facility] [address] [place] [address] [place] [address] [address] 04/17/2025 8:00 AM CDT Office Visit [facility] Breast Surgery [address]eline [address] [place] [address] [place] [address] [facility] [address] [place] [address] Health Maintenance Due Date Last [...] Completed 03/29/2023 Medical Devices Implanted Type Area Manager Gift Device Identifier Shelf Expiration Date Model / Serial / Lot Senior Operations Manager Clip Surgiclip Ii Robert 11.5in [id number] - [id number] Implanted:Qty : 1 on 11/21/2021 by Paola Mohan MD at [facility] Clip Right: Breast [employer] - COVIDIEN [id number] 07/20/2026 [id number] / / [id number] Natrelle 133s Fv 300cc Tissue Rd Project Manager W/ Suture Tabs Implanted:Qty : 1 on 11/21/2021 by Mack Rick MD at [facility] Mammary Right: Breast ALLERGAN- MEDICAL [id number] 09/03/2024 133S-FV-1 1-T / [id number] / Description:Requisition # [id number]. Natrelle Inspira Soft Touch Ssf 295cc Implanted:Qty : 1 on 08/21/2022 by Mack Rick MD at [facility] Mammary Right: Breast ALLERGAN- MEDICAL [id number] 11/17/2026 SSF-295 / [id number] / Description:Requisition # [id number]. Alloderm Matrix Tissue Thick [id number] - [id number] Implanted:Qty : 1 on 11/21/2021 by Mack Rick MD at [facility] Tissue Right: Breast ALLERGAN- MEDICAL 02/17/2023 [id number] / / [id number] Lens-Eyes Bilateral: Eye Explanted Type Area Manager Gift Device Identifier Shelf Expiration Date Model / Serial / Lot Port Powerport Clearvue 8fr Mri [id number] - [id number] Implanted:Qty: 1 on 06/18/2021 by Paola Mohan MD at [facility] Angeline Miller Explanted:Qty: 1 on 08/21/2022 by Mack Rick MD at [facility] Port Left: Chest CR BARD- MESERET VASC INC 03/19/2022 [id number] / / [id number] Procedures Procedure Name Priority Date/Time Associated Diagnosis [...] Advance Directives For more information, please contact: [phone] * Full Code (Latest Code Status on File) Date Activated Date Inactivated Comments 11/21/2021 5:14 PM 11/22/2021 11:20 AM Care Teams Lcac Operator Relationship Specialty Start Date End Date Jess Black MD [address] [place] [address] PCP - General Family Practice 05/29/21
--- OUTSIDE RECORDS SUMMARY | 2024-12-07 08:27 | XMS_ITS | Encounter Summary ---
Author Organization [facility] Address [address] [place] [address] Care Team Providers Care Show Card Writer Name Role Phone Jess Black MD Primary Care Provider [phone] Encounter Details Date Type Department Care Team (Late Contact Info) Description 10/16/2021 Chart Note [facility] Radiation Oncology [address] [place] [address] Valentín Raines MD [address] [address] Social History Tobacco Use Types [...] COVID-19? Unable to assess 10/17/2021 9:37 AM LASER BEAM MACHINE OPERATOR documented as of this encounter Plan of Treatment Upcoming Encounters Date Type Department Care Team (Late Contact Info) Description 12/15/2024 8:45 AM CDT Office Visit [facility] Oncology and Hematology - [place] [address] [facility] [address] [place] [address] Sean Pizarro MD [address] [address] 04/17/2025 7:30 AM CDT Appointment [facility] Pedro [address] [place] [phone] [place] [address] [facility] [address] [place] [address] 04/17/2025 8:00 AM CDT Office Visit [facility] Breast Surgery [address] [address] [facility] [address] [place] [address] [place] [address] [facility] [address] [place] [address] documented as of this encounter Visit Diagnoses Not on filedocumented in this encounter Care Teams Show Card Writer Relationship Specialty Start Date End Date Jess Black MD [address] [place] [address] PCP - General Family Practice 05/29/21 documented as of this encounter
--- OUTSIDE RECORDS SUMMARY | 2024-12-07 08:27 | XMS_ITS | Clinical Summary ---
Author Organization [facility] Address [facility] [place] [address] Care Team Providers Care Blowing Engineer Name Role Phone Jess Black MD Primary Care Provider Allergies Active Allergy Reactions Criticality Noted Date [...] to complete this topic Insurance Care Teams Blowing Engineer Relationship Specialty Start Date End Date Jess Black MD PCP - General FAMILY PRACTICE 04/02/19
[2024-12-08 06:38] LABS: CA 15-3 <5 U/mL (<32)
== END 2024-12-07 08:23 | disposition home or self-care (01) ==
LOC: ANHLAB 08:23
PROVIDERS: PCP Family Medicine; Visit Provider Internal Medicine Hematology & Oncology
DX: C50.411 Malignant neoplasm of upper-outer quadrant of right female breast (principal); Z17.0 Estrogen receptor positive status [ER+]
CPT/HCPCS: 36415; 86300

== ENCOUNTER 2025-06-12 09:02 | Outpatient (CLI) | payer MEDICARE, SELFPAY ==
[2025-06-12 09:17] LABS: Hematocrit 41.6 % (37.0-47.0); Hemoglobin 13.3 g/dL (12.0-15.0); Immature Granulocyte Percent A 0.7 % (0-0.5); Lymphocytes Absolute Auto 1.42 K/mm3 (0.9-3.2); Mean Corpuscular HGB Conc 32.0 g/dl (32-36); Mean Corpuscular Hemoglobin 27.4 pg (26-34); Mean Corpuscular Volume 85.8 fl (80-100); Nucleated Red Blood Cells Absolute Auto 0.000 K/mm3 (0.0-0.012); Nucleated Red Blood Cells Perc 0.0 % (0.0-0.2); Platelet Count Result 305 k/mm3 (150-375); Red Blood Count 4.85 M/mm3 (4.2-5.4); White Blood Count 6.2 K/mm3 (4.5-10.0)
--- OUTSIDE RECORDS SUMMARY | 2025-06-12 09:34 | XMS_ITS | Clinical Summary ---
Author Organization [facility] Address [address] [place] [place] [address] Phone Care Team Providers Care Assistant Professor Of Criminal Justice Name Role Phone Jess Black MD Primary Care Provider [phone] Allergies Active Allergy Reactions Criticality Noted Date Comments Sulfa (Sulfonamide Antibiotics) Rash Low 05/2021 Medications cyanocobalamin (VITAMIN B-12) 100 mcg tablet Take 100 mcg by mouth daily. Active multivitamin (DAILY-LIZETH) tablet Take 1 Tablet by mouth daily. Active calcium phosphate trib/vit D3 (CITRACAL + D3, CALCIUM PHOS, ORAL) 07/28/2021 Active D3/red wine/resveratrol /malt (SUPER-D3+ ORAL) 09/28/2023 Active anastrozole (ARIMIDEX) 1 mg tabletIndication s:Malignant neoplasm of upper-outer quadrant of right breast in female, estrogen receptor positive (CMS/HCC) Take 1 Tablet (1 mg) by mouth daily. 90 Tablet 3 12/25/2024 Active Active Problems Patient Care Coordination No [...] from 06/10/2021:Stage IIA(cT2, cN1(f), cM0, G2, ER+, [place]-, HER2+) - Signed by Paola Mohan MD on 06/10/2021 Abnormality of right breast on screening mammogr am 05/29/2021 Mass overlapping multiple quadrants of right david ast 05/29/2021 Encounters Date Type Department Care Team Description 06/05/2025 External Device Data STL ABSTRACTION Provider, Abstract 05/23/2025 External Device Data STL ABSTRACTION Provider, Abstract 05/01/2025 External Device Data STL ABSTRACTION Provider, Abstract 04/17/2025 8:00 AM CDT Office Visit [facility] Breast Surgery [address] [place] [phone] aPola Mohan MD Malignant neoplasm of upper-outer quadrant of right breast in female, estrogen receptor positive (CMS/HCC) (Primary Dx); S/P right mastectomy; Aromatase inhibitor use 04/17/2025 7:11 AM CDT - 04/17/2025 11:59 PM CDT Hospital Encounter [facility] [address] [place] [address] Paola Mohan MD Discharge Disposition: Home or Self Care 04/04/2025 External Device Data STL ABSTRACTION Provider, Abstract from Last 3 Months Immunizations Immunization Administration Dates Next Due ([employer])(12 YR UP) COVID-19 VACCINE - EMERGENCY USE AUTHORIZATION, MRNA, [id number](PF) 30 MCG/0.3 ML IM SUSP 06/11/2021,12/10/2020,11/19/2020 Family History Medical History Relation Name Comments Heart Disease Father Kory Powers Breast Cancer Maternal Cousin 40's Cancer Mother Meggan Powers Multiple Myel nany Cancer - Other Mother Meggan Powers Multiple my eloma Ovarian Cancer Neg Hx Relation Name Status Comments Father Kory Powers Alive Maternal Cousin 40's Mother Meggan Powers Alive Social History Tobacco Use Types Packs/Day Years Used Date Smoking Tobacco: Never Smokeless Tobacco: Never Tobacco Cessation:Counseling Given: Not Answered Alcohol Use Standard Drinks/Week Comments Not Currently 3 (1 standard drink = 0.6 oz pur e alcohol) Feeling Safe Answer Date Recorded Do you worry about feeling s afe and happy with the people in your life? No 04/17/2025 Feeling Safe Answer Date Recorded Are you [...] Sign Reading Time Taken Comments Blood Pressure 124/60 04/17/2025 7:55 AM CDT Pulse 63 12/15/2024 8:38 AM CDT Temperature 36.2 C (97.1 F) 12/15/2024 8:38 AM CDT Respiratory Rate 15 12/15/2024 8:38 AM CDT Oxygen Saturation 96% 12/15/2024 8:38 AM CDT Inhaled Oxygen Concentration - - Weight 67.1 kg (148 lb) 04/17/2025 7:55 AM CDT Height 160 cm (5' 3) 04/17/2025 7:55 AM CDT Body Mass Index 26.22 04/17/2025 7:55 AM CDT Plan of Treatment Upcoming Encounters Date Type Department Care Team (Late st Contact Info) Description 06/22/2025 9:00 AM CDT Office Visit [facility] Oncology and Hematology - [place] [address] [place] [address] [facility] [address] [place] [address] Sean Pizarro MD [address] [facility] [address] [place] [address] 04/19/2026 8:30 AM CDT Appointment [facility] [address] [place] [address] [place] [address] [address] [facility] [address] [place] [address] 04/19/2026 9:15 AM CDT Office Visit [facility] Breast Surgery Angeline Miller [address] [facility] [address] [place] [address] [place] [address] [facility] [address] [place] [address] Health Maintenance Due Date Last [...] (1 of 2) 2009 INFLUENZA VACCINE (#1) 2025 COVID-19 Vaccine (2024-2 6 season) 2025 06/11/2021, 12/10/2020, 11/19/2020 BREAST CANCER SCREENING 04/17/2026 04/17/20 25, 04/13/2024, 04/01/2023, Additional history exists OSTEOPOROSIS SCREENING 03/29/2028 03/29/2023 RSV VACCINE (60+ or ) (1 - 1-dose 75+ series) 2034 Medical Devices Implanted Type Area Periodontist Device Identifier Shelf Expiration Date Model / Serial / Lot Nursery School Teacher Clip Surgiclip Ii Robert 11.5in [id number] - [id number] Implanted:Qty : 1 on 11/21/2021 by Paola Mohan MD at [facility] Clip Right: Breast [employer] - COVIDIEN [id number] 07/20/2026 [id number] / / [id number] Araceli 133s Fv 300cc Tissue Life Educator W/ Suture Tabs Implanted:Qty : 1 on 11/21/2021 by Mack Rick MD at [facility] Mammary Right: Breast [employer]- MEDICAL [id number] 09/03/2024 133S-FV-1 1-T / [id number] / Description:Requisition # [id number]. Araceli Inspira Soft Touch Ssf 295cc Implanted:Qty : 1 on 08/21/2022 by Mack Rick MD at [facility] Mammary Right: Breast ALLERGAN- MEDICAL [id number] 11/17/2026 [facility]-295 / [id number] / Description:Requisition # [id number]. Alloderm Matrix Tissue Thick [id number] - [id number] Implanted:Qty : 1 on 11/21/2021 by Mack Rick MD at [facility] Tissue Right: Breast [employer]GAN- MEDICAL 02/17/2023 [id number] / / [id number] Lens-Eyes Bilateral: Eye Explanted Type Area Periodontist Device Identifier Shelf Expiration Date Model / Serial / Lot Port Powerport Clearvue 8fr Mri [id number] - [id number] Implanted:Qty: 1 on 06/18/2021 by Paola Mohan MD at [facility] Angeline Miller Explanted:Qty: 1 on 08/21/2022 by Mack Rick MD at [facility] Port Left: Chest CR BARD- MESER[employer]ASC [employer] 03/19/2022 [id number] / / [id number] Procedures Procedure Name Priority Date/Time Associated Diagnosis Comments MAMMO DIAG UNI LEFT 3D CINDY W OR WO CAD Routine 04/17/2025 7:27 AM CDT S/P right mastectomy History of right breast cancer XR DEXA BONE DENSITY AXIAL 1 OR MORE SITES Routine 03/29/2023 10:45 AM CDT from Last 3 Months or Most Recently Relevant to Health Maintenance Results * MAMMO 3D CINDY DIAGNOSTIC UNI LT W OR WO CAD (04/17/2025 7:27 AM CDT) Anatomical Region Laterality Modality Breast Left Mammography 04/17/2025 7:27 AM CDT Impressions 04/17/2025 7:36 AM CDT IMPRESSION: No suspicious findings to suggest malignancy in the left breast. Annual mammography is recommended. OVERALL FINAL ASSESSMENT: BI-RADS CATEGORY 2: Benign findings. DICTATION LOCATION: [facility] Narrative 04/17/2025 7:36 AM CDT LEFT BREAST FULL-FIELD DIGITAL DIAGNOSTIC MAMMOGRAM WITH CAD WITH 3D TOMOSYNTHESIS DATE: 04/17/2025 7:27 AM HISTORY: Right breast cancer treated with mastectomy. TECHNIQUE: Full-field digital craniocaudal, mediolateral and mediolateral oblique projections of the left breast were obtained. Low-dose full-field digital breast tomosynthesis examination was performed with 2D and 3D acquisitions. Examination is read in conjunction with computer aided detection. COMPARISON: 04/13/2024 and older. BREAST COMPOSITION: There are scattered areas of fibroglandular density. FINDINGS: No suspicious mass, suspicious microcalcifications, or architectural distortion is identified in the left breast. Redemonstration of the intramammary lymph node in the upper outer quadrant of the left breast No significant interval change since the most recent mammograms. Computer aided detection was used in the interpretation of this examination. Paola Mohan MD MAMMO ORDERABLES Final R esult * XR DEXA BONE DENSITY AXIAL 1 OR MORE SITES (03/29/2023 10:45 AM CDT) Anatomical Region Laterality Modality Other Historical Provider DIAGNOSTIC IMAGING ORDERABLE S Final Result from Last 3 Months or Most Recently Relevant to Health Maintenance Insurance [employer] MEDICARE PART A AND B MEDICARE PART A AND B Advance Directives For more information, please contact: [phone] * Full Code (Latest Code Status on File) Date Activated Date Inactivated Comments 11/21/2021 5:14 PM 11/22/2021 11:20 AM Care Teams Assistant Professor Of Criminal Justice Relationship Specialty Start Date End Date Jess Black MD [address] [place] [address] PCP - General Family Practice 05/29/21
--- OUTSIDE RECORDS SUMMARY | 2025-06-12 09:34 | XMS_ITS | Encounter Summary ---
Author Organization [facility] Address [address] [place] [address] Care Team Providers Care Quality Assurance Technician Name Role Phone Jess Black MD Primary Care Provider [phone] Encounter Details Date Type Department Care Team ([facility] Contact Info) Description 10/16/2021 Chart Note [facility] Radiation Oncology [address] [place] [address] Valentín Raines MD [address] [address] Social History Tobacco Use Types [...] COVID-19? Unable to assess 10/17/2021 9:37 AM SECURITY DEVELOPER documented as of this encounter Plan of Treatment Upcoming Encounters Date Type Department Care Team (Late Contact Info) Description 06/22/2025 9:00 AM CDT Office Visit [facility] Oncology and Hematology - [place] [address] [facility] [address] [place] [address] Sean Pizarro MD [address] [address] 04/19/2026 8:30 AM CDT Appointment [facility] Pedro [address] [place] [phone] [place] [address] [facility] [address] [place] [address] 04/19/2026 9:15 AM CDT Office Visit [facility] Breast Surgery Pedro Miller [address] [facility] [address] [place] [address] [place] [address] [facility] [address] [place] [address] documented as of this encounter Visit Diagnoses Not on filedocumented in this encounter Care Teams Quality Assurance Technician Relationship Specialty Start Date End Date Jess Black MD [address] [place] [address] PCP - General Family Practice 05/29/21 documented as of this encounter
[2025-06-12 10:45] LABS: Alanine Aminotransferase 21 U/L (6-35); Albumin Level 4.3 g/dL (3.5-5.1); Alkaline Phosphatase 61 U/L (38-126); Anion Gap 6 mmol/L (4-12); Aspartate Amino Transferase 29 U/L (14-36); Bilirubin,Total 0.4 mg/dL (0.2-1.3); Blood Urea Nitrogen 17 mg/dL (7-17); Calcium 9.6 mg/dL (8.4-10.2); Carbon Dioxide 27 mmol/L (22-30); Chloride 104 mmol/L (98-107); Estimated Glomerular Filt Rate > 60; Glucose 104 mg/dL (65-110); Potassium 4.6 mmol/L (3.4-5.0); Sodium 137 mmol/L (137-145); Total Protein 7.6 g/dL (6.3-8.2)
== END 2025-06-12 09:03 | disposition home or self-care (01) ==
LOC: ANHLAB 09:03
PROVIDERS: PCP Family Medicine; Visit Provider Internal Medicine Hematology & Oncology
DX: C50.411 Malignant neoplasm of upper-outer quadrant of right female breast (principal); Z17.0 Estrogen receptor positive status [ER+]
CPT/HCPCS: 36415; 80053; 85025; 86300